=== PATIENT | female | born 1955 | race Caucasian/White ===

== ENCOUNTER 2024-08-21 10:33 | Emergency (ER) | payer BC ==
[~2024-08-21] VITALS: Ht 157.5 cm; Wt 52.2 kg
[2024-08-21 10:57] VITALS: BP 132/78; TEMP 98.2
[2024-08-21] MEDS ORDERED: ACETAMINOPHEN ES 500 MG TABLET ONE (11:29)
[2024-08-21] MEDS: ACETAMINOPHEN ES 500 MG TABLET PO ONE (11:31)
[2024-08-21 12:30] VITALS: O2SAT 100
== END 2024-08-21 12:30 | disposition home or self-care (01) ==
LOC: ER 10:41
DX: S01.01XA Laceration without foreign body of scalp, initial encounter (principal); W01.0XXA Fall on same level from slipping, tripping and stumbling without subsequent striking against object, initial encounter; Y93.89 Activity, other specified; Y92.89 Other specified places as the place of occurrence of the external cause; Y99.8 Other external cause status

== ENCOUNTER 2024-08-31 12:33 | Emergency (ER) | payer BC ==
[~2024-08-31] VITALS: Ht 162.6 cm; Wt 59.0 kg
[2024-08-31 12:43] VITALS: BP 112/72; TEMP 97.9; O2SAT 99
== END 2024-08-31 12:53 | disposition home or self-care (01) ==
LOC: ER 12:36
DX: S01.01XD Laceration without foreign body of scalp, subsequent encounter (principal); Z48.02 Encounter for removal of sutures; X58.XXXD Exposure to other specified factors, subsequent encounter